=== PATIENT | male | born 1985 | race Caucasian/White ===

== ENCOUNTER 2017-07-18 22:00 | Emergency (ER) | payer SELFPAY ==
[2017-07-18] MEDS: CYCLOBENZAPRINE HCL 10 MG TAB PO (23:05)
[2017-07-18] MEDS: IBUPROFEN 800 MG TAB PO (23:06)
== END 2017-07-18 23:10 | disposition home or self-care (01) ==
LOC: NEPD 22:00
DX: S56.912A Strain of unspecified muscles, fascia and tendons at forearm level, left arm, initial encounter (principal); X58.XXXA Exposure to other specified factors, initial encounter
CPT/HCPCS: 99283